=== PATIENT | male | born 1965 | race Caucasian/White ===

== ENCOUNTER 2020-12-12 11:34 | Emergency (ER) | payer OTHER ==
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
[2020-12-12] MEDS: Tetracaine HCl/PF 0.5% 4 ML Bottle EYELF ONE (12:23)
[2020-12-12] MEDS: Erythromycin Base 0.5% Ophth Oint 3.5 GM Tube EYELF ONE (12:32)
== END 2020-12-12 12:47 | disposition home or self-care (01) ==
LOC: SUPCPDRO 11:34 → LL.ED 11:34
DX: T15.02XA Foreign body in cornea, left eye, initial encounter (principal); I10 Essential (primary) hypertension; Z88.0 Allergy status to penicillin; Z79.899 Other long term (current) drug therapy
CPT/HCPCS: 65220; 99283; 99283-25; A9270-GY